=== PATIENT | female | born 1965 | race Caucasian/White ===

== ENCOUNTER 2020-11-23 16:15 | Outpatient (REF) | payer BC, SELFPAY ==
--- NOTE | 2020-11-23 15:30 | SKI_PTH ---
PATIENT: Shalonda Lozano LOC: [facility] U#:[id number] AGE/SX: 55/F ROOM: RE11/23/[address]: Edita Conway : 1965 BED: DIS: 11/23/2020 SPEC #: [id number] RECD: 11/24/20 10:04 STATUS: ALTON REJhonny #: [id number] GISELLA: 11/23/20 15:[address]: Edita Conway DEPT: Surgical Specimen RECD BY: Oksana Barnes ENTERED: 11/24/20 10:06 SP TYPE: VANIA ELIAS DR: Mary Gutierrez Tissues: 1 - SKIN BIOPSY(SHAVE/PUNCH) Procedures: SKIN LEVEL 4 Comments: [id number]
== END 2020-11-23 16:16 | disposition home or self-care (01) ==
LOC: LBN 16:15
PROVIDERS: PCP Nurse Practitioner Family; Visit Provider Internal Medicine
DX: L82.1 Other seborrheic keratosis (principal)
CPT/HCPCS: 88305

== ENCOUNTER 2021-11-23 20:56 | Outpatient (REF) | payer BC, SELFPAY ==
[2021-11-23 21:14] LABS: HCT 36.3 % (36.0-46.0); HGB 12.4 g/dL (11.2-15.7); MCH 30.5 pg (27.0-33.0); MCHC 34.2 % (32.0-36.0); MCV 89 fL (80-95); MPV 9.5 fL (8.0-11.0); Platelet Count 303 10^3/uL (130-400); RBC 4.06 10^6/uL (3.93-5.22); RDW 12.2 % (11.7-14.6)
[2021-11-23 21:26] LABS: ALT 21 U/L (14-59); AST 24 U/L (15-37); Albumin 3.8 g/dL (3.4-5.0); Alkaline Phosphatase 38 U/L (46-116); Anion Gap 11.3 mmol/L (3-11); BUN 13 mg/dL (7-18); Bilirubin, Total 0.3 mg/dL (0.2-1.0); CO2 26.7 mmol/L (21.0-32.0); CREATININE 1.1 mg/dL (0.55-1.02); Calculated LDL 145 mg/dL (<100); Chloride 100 mmol/L (98-107); Cholesterol 249 mg/dL (<200); Estimated GFR 51.38 (mL/min/1.73m2); Glucose 86 mg/dL (74-106); HDL Cholesterol 68 mg/dL (40-60); Hemoglobin A1C 5.3 % (<5.7); Potassium 3.5 mmol/L (3.5-5.1); Sodium 138 mmol/L (136-145); TSH (W/Ref FT4) 2.02 uIU/mL (0.36-3.74); Total Protein 7.7 g/dL (6.4-8.2); Triglyceride 183 mg/dL (<150)
== END 2021-11-23 20:57 | disposition home or self-care (01) ==
LOC: NCHCN 20:56
PROVIDERS: PCP Nurse Practitioner Family; Visit Provider Nurse Practitioner Family
DX: Z00.00 Encounter for general adult medical examination without abnormal findings (principal); Z13.220 Encounter for screening for lipoid disorders; Z13.1 Encounter for screening for diabetes mellitus; Z13.29 Encounter for screening for other suspected endocrine disorder; Z13.0 Encounter for screening for diseases of the blood and blood-forming organs and certain disorders involving the immune mechanism
CPT/HCPCS: 80053; 80061; 85027; 83036; 84443

== ENCOUNTER 2023-12-19 10:44 | Outpatient (REF) | payer OTHER, SELFPAY ==
--- NOTE | 2023-12-19 09:30 | PAPFT_PTH ---
PATIENT: Shalonda Lozano LOC: [facility]#:[id number] AGE/SX: 58/F ROOM: RE12/19/[address]: Mary Gutierrez : 1965 BED: DIS: 12/19/2023 SPEC #: [id number] RECD: 12/19/23 18:11 STATUS: ALTON REJhonny #: [id number] GISELLA: 12/19/23 09:[address]: Mary Alicea DEPT: [facility] Cytology RECD BY: Stephanie Mccall Tissues: 1 - CX/ENDOCX FOR PAP SMEARS Procedures: PAP THIN PREP/[facility] Screening HPV DNA PROBE Comments: [id number] (HPV 16 & 18/45)
== END 2023-12-19 10:45 | disposition home or self-care (01) ==
LOC: NCHCN 10:44
PROVIDERS: PCP Nurse Practitioner Family; Visit Provider Nurse Practitioner Family
DX: Z12.4 Encounter for screening for malignant neoplasm of cervix (principal); Z11.51 Encounter for screening for human papillomavirus (HPV)
CPT/HCPCS: 88142; 87624

== ENCOUNTER 2025-01-26 15:03 | Outpatient (REF) | payer OTHER, SELFPAY ==
[2025-01-26 14:44] LABS: HCT 34.3 % (36.0-46.0); HGB 11.8 g/dL (11.2-15.7); MCH 29.5 pg (27.0-33.0); MCHC 34.4 % (32.0-36.0); MCV 86 fL (80-95); MPV 9.4 fL (8.0-11.0); Platelet Count 263 10^3/uL (130-400); RBC 4.00 10^6/uL (3.93-5.22); RDW 12.6 % (11.7-14.6); RDW-SD 39.2 fL; WBC 6.75 10^3/uL (4.4-10.8)
[2025-01-26 15:11] LABS: ALT 21 U/L (14-59); AST 22 U/L (15-37); Albumin 3.6 g/dL (3.4-5.0); Alkaline Phosphatase 63 U/L (46-116); Anion Gap 8.5 mmol/L (3-11); BUN 16 mg/dL (7-18); Bilirubin, Total 0.3 mg/dL (0.2-1.0); CO2 28.5 mmol/L (21.0-32.0); Calcium 9.5 mg/dL (8.5-10.1); Calculated LDL 184 mg/dL (<100); Chloride 101 mmol/L (98-107); Cholesterol 277 mg/dL (<200); Estimated GFR 73.64 (mL/min/1.73m2); Glucose 96 mg/dL (74-106); HDL Cholesterol 50 mg/dL (>or=50); Potassium 3.8 mmol/L (3.5-5.1); Sodium 138 mmol/L (136-145); TSH 2.06 uIU/mL (0.36-3.74); Total Protein 7.6 g/dL (6.4-8.2); Triglyceride 217 mg/dL (<150)
[2025-01-26 15:22] LABS: Hemoglobin A1C 5.3 % (<5.7)
== END 2025-01-26 15:04 | disposition home or self-care (01) ==
LOC: NCHCN 15:03
PROVIDERS: PCP Nurse Practitioner Family; Visit Provider Nurse Practitioner Family
DX: Z00.00 Encounter for general adult medical examination without abnormal findings (principal); Z13.1 Encounter for screening for diabetes mellitus; Z13.220 Encounter for screening for lipoid disorders
CPT/HCPCS: 80053; 80061; 85027; 83036; 84443